=== PATIENT | male | born 2000 | race Caucasian/White ===

== ENCOUNTER 2024-09-22 10:37 | Emergency (ER) | payer OTHER, BC ==
[~2024-09-22] VITALS: Ht 185.4 cm; Wt 88.5 kg
[~2024-09-22 10:37] MED LIST: CEPH250SUA PO; CODACEE120 PO; EPIN0.15 IM; FLORIDE; PRED15SY PO
[2024-09-22 12:56] VITALS: BP 127/75
[2024-09-22] MEDS ORDERED: EPIPEN0.3 MG/0.3 IM (13:16)
== END 2024-09-22 13:29 | disposition home or self-care (01) ==
LOC: ER 10:37
DX: T63.441A Toxic effect of venom of bees, accidental (unintentional), initial encounter (principal); Z91.030 Bee allergy status
CPT/HCPCS: 99284